=== PATIENT | female | born 1935 | race Caucasian/White ===

== ENCOUNTER 2018-12-26 17:19 | Emergency (ER) | payer OTHER ==
--- NOTE | 2018-12-26 18:02 | ED Physician Chart ---
ED Chief Complaint/HPI - Patient Information Date Seen:: 12/26/18 Time Seen:: 17:40 Chief Complaint:: drooping and numbness left cheek History of Present Illness:: Granddaughter noted patient had drooping and numbness of her left cheek at 1620 today. The patient states she also had left arm weakness and numbness. Episode lasted 2-3 minutes. Patient has felt confused since yesterday. The patient appears confused to the granddaughter now. Apparently at triage patient had drooping of the right corner of her mouth. Over the last one month patient has had 2 prior episodes of left arm numbness and weakness and slight numbness of her left cheek each episode lasting only a few minutes. Allergies:: Allergies Allergy/AdvReac Type Severity Reaction Status Date / Time No Known Allergies Allergy Verified 12/26/18 17:35 Vitals:: Vital Signs - 8 hr 12/26/18 17:27 Temp 98.2 F HR 73 RR 16 BP 145/69 O2 Sat % 98 Historian:: Patient, Family Member Review:: Nurse's Note Reviewed ED Review of Systems - Review of Systems General/Constitutional: No fever, No chills, No weight loss, No weakness, No diaphoresis, No edema, No loss of appetite Skin: No skin lesions, No rash, No bruising Head: No headache, No light-headedness Eyes: No loss of vision, No pain, No diplopia ENT: No earache, No nasal drainage, No sore throat, No tinnitus Neck: No neck pain, No swelling, No thyromegaly, No stiffness, No mass noted Cardio Vascular: No chest pain, No palpitations, No PND, No orthopnea, No edema Pulmonary: No SOB, No cough, No sputum, No wheezing GI: No nausea, No vomiting, No diarrhea, No pain, No melena, No hematochezia, No constipation, No hematemesis G/U: No dysuria, No frequency, No hematuria Musculoskeletal: No bone or joint pain, No back pain, No muscle pain Endocrine: No polyuria, No polydipsia Psychiatric: No prior psych history, No depression, No anxiety, No suicidal ideation Hematopoietic: No bruising, No lymphadenopathy Allergic/Immuno: No urticaria, No angioedema Neurological: No syncope, Weakness, No weakness, No headache, No seizure, No dizziness, Confusion, No vertigo ED Past Medical History - Past Medical History Past Medical History: HTN, DM, Other (right shoulder fracture 08/19/2018 for which she is still receiving physical therapy) Family History: Heart disease Social History: Non Smoker, No Alcohol Surgical History: other (right foot) Psychiatricy History: None Medication: Reviewed Family Medical History - Family Member Mother History Unknown: Yes ED Physical Exam - Physical Examination General/Constitutional: Awake, Well-developed, well-nourished, Alert, No distress, GCS 15, Non-toxic appearing, Ambulatory Other Gen/Cons comments:: Alert and oriented to yesterday's date Head: Atraumatic Eyes: Lids, conjuctiva normal, PERRL Skin: Nl inspection, No rash, No skin lesions, No ecchymosis ENMT: External ears, nose nl, TM canals nl, Nasal exam nl, Lips, teeth, gums nl , Oropharynx nl, Tonsils nl Neck: No bruit Respiratory: Nl effort/Exclusion, Clear to Auscultation Cardio Vascular: RRR, No murmur, gallop, rubs GI: No tenderness/rebounding/guarding, No organomegaly, No hernia, Normal BS's Extremities: Normal digits & nails Other Neuro/Psych comments:: 1.5 out of 4 drooping right coronary mouth; equal hand grasp; leg strength grossly equal ED Labs/Radiology/EKG Results - Lab Results Results: Laboratory Tests 12/26/18 17:24 POC Glucose 90 Laboratory Results WBC 8.7 Th/cmm (4.8-10.8) 12/26/18 18:00 RBC 4.54 Mil/cmm (3.80-5.20) 12/26/18 18:00 Hgb 12.4 gm/dL (12-16) 12/26/18 18:00 Hct 38.8 % (41.0-60) L 12/26/18 18:00 MCV 85.5 fl (81-100) 12/26/18 18:00 MCH 27.3 pg (27.0-31.0) 12/26/18 18:00 MCHC Differential 32.0 pg (28.0-36.0) 12/26/18 18:00 RDW 15.3 % (11.5-20.0) 12/26/18 18:00 Plt Count 245 Th/cmm (150-400) 12/26/18 18:00 MPV 9.4 fl 12/26/18 18:00 Neutrophils % 66.0 % (40.0-80.0) 12/26/18 18:00 Lymphocytes % 23.1 % (20.0-50.0) 12/26/18 18:00 Monocytes % 7.3 % (2.0-10.0) 12/26/18 18:00 Eosinophils % 2.6 % (0.0-5.0) 12/26/18 18:00 Basophils % 1.0 % (0.0-2.0) 12/26/18 18:00 PT 9.7 SECONDS (9.5-11.5) 12/26/18 18:00 INR 0.93 (0.5-1.4) 12/26/18 18:00 PTT (Actin FS) 25.9 SECONDS (26.0-38.0) L 12/26/18 18:00 Sodium 140 mEq/L (136-145) 12/26/18 18:00 Potassium 3.6 mEq/L (3.5-5.1) 12/26/18 18:00 Chloride 101 mEq/L (98-107) 12/26/18 18:00 Carbon Dioxide 28.2 mEq/L (21.0-31.0) 12/26/18 18:00 Anion Gap 14.4 (7.0-16.0) 12/26/18 18:00 BUN 40 mg/dL (7-25) H 12/26/18 18:00 Creatinine 1.4 mg/dL (0.6-1.2) H 12/26/18 18:00 Est GFR ( Amer) TNP 12/26/18 18:00 Est GFR (Non-Af Amer) TNP 12/26/18 18:00 BUN/Creatinine Ratio 28.6 12/26/18 18:00 Glucose 86 mg/dL (70-105) 12/26/18 18:00 POC Glucose 90 MG/DL (70 - 105) 12/26/18 17:24 Calcium 9.6 mg/dL (8.6-10.3) 12/26/18 18:00 Magnesium 1.6 mg/dL (1.9-2.7) L 12/26/18 18:00 Troponin I < 0.01 ng/mL (0.01-0.05) L 12/26/18 18:00 - EKG Interpretations Rate & Rhythm: normal sinus rhythm with a rate of 73 [place]: normal Comments:: Left ventricular hypertrophy ED Assessment - Assessment General Assessment: At 1945 patient states she feels normal but daughter states she still seems confused. ED Septic Shock - . Is Septic Shock (SBP<90, OR Lactate>4 mmol\L) present?: No - <6hrs of presentation: Vital Signs: Vital Signs - 8 hr 12/26/18 17:27 Temp 98.2 F HR 73 RR 16 BP 145/69 O2 Sat % 98 ED Reassessment (Disposition) - Reassessment Reassessment:: I talked to Dr. Garcia with [facility] and patient stable to be transferred to a [facility] facility Reassessment Condition:: Improved - Patient Disposition Discharge/Transfer:: Acute Care (other hosp) Transport Method:: BLS Condition at Disposition:: Stable, Improved
[2018-12-26 18:08] LABS: % EOSINOPHILS 2.6 % (0.0-5.0); % LYMPHOCYTES 23.1 % (20.0-50.0); % MONOCYTES 7.3 % (2.0-10.0); BASOPHILE ABSOLUTE 0.1 Th/cumm (0-0.2); EOSINOPHILE ABSOLUTE 0.2 Th/cmm (0.1-0.4); HEMATOCRIT 38.8 % (41.0-60); HEMOGLOBIN 12.4 gm/dL (12-16); MEAN CELL VOLUME 85.5 fl (81-100); MEAN CORPUSCULAR HEMOGLOBIN 27.3 pg (27.0-31.0); MEAN PLATELET VOLUME 9.4 fl; MONOCYTE ABSOLUTE 0.6 Th/cmm (0.3-1.0); NEUTROPHILE ABSOLUTE 5.8 Th/cmm (1.8-8.0); PLATELET COUNT 245 Th/cmm (150-400); RED BLOOD COUNT 4.54 Mil/cmm (3.80-5.20); RED CELL DISTRIBUTION WIDTH 15.3 % (11.5-20.0); WHITE BLOOD COUNT 8.7 Th/cmm (4.8-10.8)
[2018-12-26 18:18] LABS: INR 0.93 (0.5-1.4); PROTHROMBIN TIME (TEST) 9.7 SECONDS (9.5-11.5)
[2018-12-26 18:25] LABS: ANION GAP 14.4 (7.0-16.0); BUN - UREA NITROGEN 40 mg/dL (7-25); CALCIUM SERUM 9.6 mg/dL (8.6-10.3); CARBON DIOXIDE 28.2 mEq/L (21.0-31.0); CHLORIDE 101 mEq/L (98-107); CREATININE - SERUM 1.4 mg/dL (0.6-1.2); GLUCOSE 86 mg/dL (70-105); MAGNESIUM 1.6 mg/dL (1.9-2.7); POTASSIUM SERUM 3.6 mEq/L (3.5-5.1); SODIUM SERUM 140 mEq/L (136-145)
[2018-12-26] MEDS ORDERED: Aspirin 81mg Chewable Tab PO STA (19:45)
[2018-12-26] MEDS ORDERED: Aspirin 81mg Chewable Tab ONE (19:50)
--- NOTE | 2018-12-27 09:17 | Diagnostic Imaging Report ---
CT scan of the brain without intravenous contrast HISTORY: Stroke, CVA Total DLP equals 602 CTDI equals 32.3 Axial sections were obtained from the base of the skull to the vertex. There is a normal ventricular system size. No acute parenchymal abnormalities. No intracerebral hemorrhage. No mass effect or shift of midline structures. No extra-axial masses or abnormal fluid collections. Atherosclerotic calcification is seen in the region of the right vertebral arteries at the base of the skull. IMPRESSION: 1. No acute abnormalities 2. Atherosclerotic vascular changes
--- NOTE | 2018-12-27 09:21 | Diagnostic Imaging Report ---
Portable chest x-ray History: Shortness of breath Allowing for portable technique the heart size is normal. Atherosclerotic calcination seen within the aortic arch. No focal pulmonary parenchymal processes. No hilar or mediastinal abnormalities. Impression: 1. No acute abnormalities 2. Atherosclerotic vascular changes
== END 2018-12-26 23:32 | disposition short-term general hospital (02) ==
LOC: ER 17:19 → EDBD 17:19 → ER 23:32
DX: I51.7 Cardiomegaly (principal); R41.0 Disorientation, unspecified; R20.2 Paresthesia of skin; I10 Essential (primary) hypertension; E11.9 Type 2 diabetes mellitus without complications
CPT/HCPCS: 36415-UA; 70450-TC; 71045-TC; 80048-TC; 82948-90; 83735-TC; 84484-TC; 85025-TC; 85610-TC; 85730-TC; 93005; Z7610